=== PATIENT | male | born 1995 | race African-American/Black ===

== ENCOUNTER 2021-08-26 08:33 | Emergency (ER) | payer BC ==
[2021-08-26 08:59] VITALS: BP 143/77; PULSE 72; TEMP 98.6; BMI 32.9
[2021-08-26] MEDS ORDERED: MAG HYDROX/AL HYDROX/SIMETH 30 ML UNIT-DOSE CUP PO ONE (09:13)
[2021-08-26] MEDS ORDERED: ACETAMINOPHEN 500 MG TABLET (FP) PO ONE (09:13)
[2021-08-26] MEDS ORDERED: MAG HYDROX/AL HYDROX/SIMETH 30 ML UNIT-DOSE CUP ONE (09:19)
[2021-08-26] MEDS ORDERED: ACETAMINOPHEN 500 MG TABLET (FP) ONE (09:19)
[2021-08-26 09:31] LABS: HEMATOCRIT 43.1 % (35.4-49); HEMOGLOBIN 15.1 G/dL (11.7-16.9); MCH 30.7 pg (25.7-33.7); MEAN CELL VOLUME 87.7 fl (80-96); MEAN PLT VOLUME 8.1 fl (7.5-11.1); PLATELET COUNT 267.5 10^3/uL (134-434); RBC 4.92 10^6/uL (4.00-5.60); RDW 13.7 % (11.9-15.9); WHITE BLOOD COUNT 2.2 10^3/uL (4.0-10.8)
[2021-08-26 09:39] LABS: ALBUMIN 4.5 g/dl (3.4-5.0); BILIRUBIN,TOTAL 0.5 mg/dl (0.2-1); CALCIUM 9.8 mg/dl (8.5-10); CREATININE 1.1 mg/dl (0.55-1.3)
== END 2021-08-26 10:02 | disposition home or self-care (01) ==
LOC: FER 08:33
DX: R10.9 Unspecified abdominal pain (principal)
CPT/HCPCS: 36415; 80053; 85025; 99283-25